=== PATIENT | female | born 1945 | race Caucasian/White ===

== ENCOUNTER 2021-01-18 16:03 | Emergency (ER) | payer SELFPAY ==
[2021-01-18] MEDS ORDERED: PERCOCET 5/325 T1 EA PO (19:28)
== END 2021-01-18 20:40 | disposition home or self-care (01) ==
LOC: ER1 16:03
DX: S53.005A Unspecified dislocation of left radial head, initial encounter (principal); I10 Essential (primary) hypertension; E78.5 Hyperlipidemia, unspecified; Z79.899 Other long term (current) drug therapy; W01.0XXA Fall on same level from slipping, tripping and stumbling without subsequent striking against object, initial encounter; Y92.009 Unspecified place in unspecified non-institutional (private) residence as the place of occurrence of the external cause
CPT/HCPCS: 24600; 73080; 73200; 99152; 99284